=== PATIENT | male | born 1970 | race Caucasian/White ===

== ENCOUNTER 2018-12-24 22:53 | Emergency (ER) | payer BC ==
[~2018-12-24] VITALS: Ht 203.2 cm; Wt 109.8 kg
[2018-12-25] MEDS ORDERED: PEPCID40 MG PO (02:47)
[2018-12-25] MEDS ORDERED: PHENERGAN25 MG PO (02:47)
[2018-12-25] MEDS ORDERED: LEVSIN/SL0.125 MG SL (02:47)
== END 2018-12-25 02:57 | disposition home or self-care (01) ==
LOC: ER 22:53
DX: K29.60 Other gastritis without bleeding (principal)